=== PATIENT | female | born 1980 | race Caucasian/White ===

== ENCOUNTER → 2016-09-07 11:38 | Emergency (ER) | payer OTHER ==
[~2016-09-07 11:38] MED LIST: Azithromycin TAB* 250 MG PO ONE; cefTRIAXone VIAL(*) 250 MG VIAL IM ONE
[2016-09-07 11:46] VITALS: BP 155/88
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
[2016-09-07 16:17] LABS: Hematocrit 42 % (35-47); Hemoglobin 14.5 g/dl (12.0-16.0); Mean Corpuscular HGB Conc 35 g/dl (31-36); Mean Corpuscular Hemoglobin 36 pg (27-31); Mean Corpuscular Volume 102 fL (80-97); Mean Platelet Volume 9 um3 (7.4-10.4); Red Blood Count 4.08 10^6/ul (4.0-5.4); Red Cell Distribution Width 14 % (10.5-15); White Blood Count 10.8 10^3/ul (3.5-10.8)
[2016-09-07 16:33] LABS: ALT 91 U/L (7-52); AST 67 U/L (13-39); Albumin 4.6 g/dL (3.2-5.2); Alkaline Phosphatase 80 U/L (34-104); Anion Gap 13 mmol/L (2-11); BUN/Creatinine Ratio 17.1 (8-20); Blood Urea Nitrogen 13 mg/dL (6-24); CO2 Carbon Dioxide 21 mmol/L (22-32); Calcium 9.7 mg/dL (8.6-10.3); Chloride 99 mmol/L (101-111); EGFR Non-African American 87.1 (>60); Glucose 71 mg/dL (70-100); Sodium 133 mmol/L (133-145); Total Protein 7.6 g/dL (6.4-8.9)
[2016-09-07 16:58] LABS: Manual Entry Verification MD; Rapid HIV INT CONT QC Line Present; Rapid HIV Kit Lot# F308002
== END | disposition home or self-care (01) ==
LOC: ED 11:38
DX: T74.21XA Adult sexual abuse, confirmed, initial encounter (principal); F17.210 Nicotine dependence, cigarettes, uncomplicated; Y07.59 Other non-family member, perpetrator of maltreatment and neglect
CPT/HCPCS: 36415; 80053; 84702; 85025; 86703; 86803; 87340; 99283; A9270-GY; J0696

== ENCOUNTER 2016-11-12 15:27 | Emergency (ER) | payer OTHER ==
[2016-11-12 19:08] LABS: Anion Gap 8 mmol/L (2-11); BUN/Creatinine Ratio 18.5 (8-20); Blood Urea Nitrogen 12 mg/dL (6-24); CO2 Carbon Dioxide 23 mmol/L (22-32); Chloride 102 mmol/L (101-111); EGFR African American 134.2 (>60); EGFR Non-African American 104.3 (>60); Glucose 86 mg/dL (70-100); Potassium 3.7 mmol/L (3.5-5.0); Sodium 133 mmol/L (133-145)
[2016-11-12 19:09] LABS: ALT 29 U/L (7-52); AST 24 U/L (13-39); Albumin 4.1 g/dL (3.2-5.2); Alkaline Phosphatase 46 U/L (34-104); Calcium 9.5 mg/dL (8.6-10.3); Globulin 2.8 g/dL (2-4); Magnesium 1.7 mg/dL (1.9-2.7); Total Protein 6.9 g/dL (6.4-8.9)
[2016-11-12 19:38] LABS: Hematocrit 42 % (35-47); Hemoglobin 14.1 g/dl (12.0-16.0); Mean Corpuscular HGB Conc 34 g/dl (31-36); Mean Corpuscular Hemoglobin 35 pg (27-31); Mean Corpuscular Volume 104 fL (80-97); Mean Platelet Volume 9 um3 (7.4-10.4); Red Blood Count 4.01 10^6/ul (4.0-5.4); Red Cell Distribution Width 13 % (10.5-15)
[2016-11-12 19:44] LABS: TSH (Thyroid Stimulating Horm) 0.75 mcIU/mL (0.34-5.60)
[2016-11-12 20:12] VITALS: BP 127/68
--- NOTE | 2016-11-12 22:18 | ED ---
Marisa Cox Alfonso, scribed for Devendra Pham MD on 11/12/16 at 1919 . Palpitations / Dysrhythmia - HPI Summary HPI Summary: This patient is a 36 year old female [facility] c/o palpitations at 1450 today. The palpitations lasted approximately one minute. She reports her heart coming out of my chest and shakes through my whole body. Symptoms aggravated by anxiety and alleviated by spontaneous resolution. The patient had SOB and chest heaviness during the episode. She is dizzy and near syncope. The patient reports similar episodes over the last 3 years with the last episode being 4 months ago. She smokes 1 ppd. - History of Current Complaint Chief Complaint: EDDysrhythmPalp Time Seen by Provider: 11/12/16 18:02 Hx Obtained From: Patient Onset/Duration: Sudden Onset, Lasting Minutes - 1 minute, Resolved Severity Initially: Moderate Severity Currently: None Character: Pounding Associated Signs & Symptoms: Dizzy, Syncope - Near, Chest Pain - heaviness, Shortness of Breath - Allergy/Home Medications Allergies/Adverse Reactions: Allergies Allergy/AdvReac Type Severity Reaction Status Date / Time Bacitracin [From Neosporin] Allergy Mild Blisters Verified 02/08/16 10:11 Neomycin [From Neosporin] Allergy Mild Blisters Verified 02/08/16 10:11 Polymyxin B [From Neosporin] Allergy Mild Blisters Verified 02/08/16 10:11 PMH/Surg Hx/FS Hx/Imm Hx Endocrine/Hematology History: Denies: Hx Anticoagulant Therapy, Hx Diabetes, Hx Thyroid Disease Cardiovascular History: Denies: Hx Hypertension, Hx Pacemaker/ICD Respiratory History: Denies: Hx Asthma, Hx Chronic Obstructive Pulmonary Disease (COPD) History: Denies: Hx Renal Disease Neurological History: Denies: Hx Dementia, Hx Seizures Psychiatric History: Denies: Hx Substance Abuse - Surgical History Surgery Procedure, Year, and Place: c section, surgical 2016 Infectious Disease History: No Infectious Disease History: Denies: Hx Hepatitis, Hx Human Immunodeficiency Virus (HIV), History Other Infectious Disease, Traveled Outside the [place] in Last 30 Days - Family History Known Family History: Positive: Diabetes - Social History Alcohol Use: Daily Alcohol Amount: 3-4 beers a day Substance Use Type: Reports: None Smoking Status (MU): Heavy Every Day Tobacco Smoker Amount Used/How Often: 8 cig. day Review of Systems Positive: Palpitations, Chest Pain - heaviness Positive: Shortness Of Breath Neurological: Other - Positive dizziness Positive: Syncope - Near All Other Systems Reviewed And Are Negative: Yes Physical Exam Triage Information Reviewed: Yes Vital Signs On Initial Exam: Initial Vitals Temp Pulse Resp BP Pulse Ox 97.7 F 123 16 150/104 100 11/12/16 15:30 11/12/16 15:30 11/12/16 15:30 11/12/16 15:30 11/12/16 15:30 Vital Signs Reviewed: Yes Appearance: Positive: Well-Appearing, No Pain Distress Skin: Positive: Warm, Skin Color Reflects Adequate Perfusion, Dry Head/Face: Positive: Normal Head/Face Inspection Eyes: Positive: Normal ENT: Positive: Normal ENT inspection Neck: Positive: Supple, Nontender Respiratory/Lung Sounds: Positive: Clear to Auscultation, Breath Sounds Present Cardiovascular: Positive: RRR Abdomen Description: Positive: Nontender, Soft Bowel Sounds: Positive: Present Musculoskeletal: Positive: Normal Neurological: Positive: Normal, Sensory/Motor Intact, Alert, Oriented to Person Place, Time, CN Intact II-III Psychiatric: Positive: Affect/Mood Appropriate - Kathy Coma Scale Coma Scale Total: 15 Diagnostics - Vital Signs Vital Signs Temp Pulse Resp BP Pulse Ox 11/12/16 17:46 99.4 F 67 16 128/86 100 11/12/16 15:30 97.7 F 123 16 150/104 100 - Laboratory Lab Results: Lab Results 11/12/16 11/12/16 Range/Units 18:31 18:31 Sodium 133 (133-145) mmol/L Potassium 3.7 (3.5-5.0) mmol/L Chloride 102 (101-111) mmol/L Carbon Dioxide 23 (22-32) mmol/L Anion Gap 8 (2-11) mmol/L BUN 12 (6-24) mg/dL Creatinine 0.65 (0.51-0.95) mg/dL Est GFR ( Amer) 134.2 (>60) Est GFR (Non-Af Amer) 104.3 (>60) BUN/Creatinine Ratio 18.5 (8-20) Glucose 86 (70-100) mg/dL Lactic Acid 0.7 (0.5-2.0) mmol/L Calcium 9.5 (8.6-10.3) mg/dL Magnesium 1.7 L (1.9-2.7) mg/dL Total Bilirubin 0.50 (0.2-1.0) mg/dL AST 24 (13-39) U/L ALT 29 (7-52) U/L Alkaline Phosphatase 46 (34-104) U/L Troponin I Pending Total Protein 6.9 (6.4-8.9) g/dL Albumin 4.1 (3.2-5.2) g/dL Globulin 2.8 (2-4) g/dL Albumin/Globulin Ratio 1.5 (1-3) TSH Pending Beta HCG, Quant Pending Result Diagrams: 11/12/16 18:31 11/12/16 18:31 Lab Statement: Any lab studies that have been ordered have been reviewed, and results considered in the medical decision making process. - EKG 1533 Cardiac Rate: NL - BPM 74 EKG Rhythm: Sinus Rhythm Course/Dx - Course Course Of Treatment: Ms. Sanderson has had tachycardic palpitations a few times over the last months to years. She had an episode today that was transient and unaccompanied by associated symptoms. She was monitored here with no ectopy and her W/U was negative and I recommended F/U. - Diagnoses Provider Diagnoses: Palpitations Discharge - Discharge Plan Condition: Stable Disposition: HOME Patient Education Materials: Palpitations (ED) Referrals: [facility]YSICIAN REFERRAL [Outside] - 3 Days The documentation as recorded by the Marisa alexis Alfonso accurately reflects the service I personally performed and the decisions made by me, Devendra Pham MD.
== END 2016-11-12 20:13 | disposition home or self-care (01) ==
LOC: ED 15:27
DX: R00.2 Palpitations (principal); R42 Dizziness and giddiness; R55 Syncope and collapse; R07.9 Chest pain, unspecified; R06.02 Shortness of breath; F17.210 Nicotine dependence, cigarettes, uncomplicated
CPT/HCPCS: 36415; 80053; 83605; 83735; 84443; 84484; 84702; 85025; 93005; 99282

== ENCOUNTER 2016-12-10 02:21 | Emergency (ER) | payer OTHER ==
[2016-12-10 02:35] VITALS: BP 138/104
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
--- NOTE | 2016-12-10 07:58 | RAD ---
Indication: Neck injury. CT of the cervical spine was obtained in the axial plane. Sagittal and coronal reconstructed images were obtained. The skull base demonstrates no fracture. Mastoid air cells are well aerated. The C1 ring is intact. The remainder of the vertebral bodies appear normal in height. Straightening of the normal lordosis is noted. At C2-C3 and C3-C4 there is no disc protrusion. No central foraminal stenosis is noted. At C4-C5 no disc protrusion is noted. No central foraminal stenosis is noted. At C5-C6 and C6-C7 there is no disc protrusion noted. IMPRESSION: No fracture of the cervical spine is noted. Degenerative disc disease at C5-C6 is noted.
== END 2016-12-10 03:28 | disposition left against medical advice (07) ==
LOC: ED 02:21
DX: M54.2 Cervicalgia (principal); Z53.21 Procedure and treatment not carried out due to patient leaving prior to being seen by health care provider
CPT/HCPCS: 70450; 72125; 99282

== ENCOUNTER 2017-06-08 12:07 | Emergency (ER) | payer MEDICAID, OTHER ==
[2017-06-08 12:36] VITALS: BP 117/70
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
== END 2017-06-08 14:03 | disposition home or self-care (01) ==
LOC: UCEAST 12:07
DX: S00.83XA Contusion of other part of head, initial encounter (principal); W50.0XXA Accidental hit or strike by another person, initial encounter; Y93.83 Activity, rough housing and horseplay; Y92.9 Unspecified place or not applicable; Z88.3 Allergy status to other anti-infective agents; F17.210 Nicotine dependence, cigarettes, uncomplicated
CPT/HCPCS: 70110; 99211; G0463

== ENCOUNTER 2017-08-17 21:19 | Emergency (ER) | payer MEDICAID ==
[2017-08-17 22:31] LABS: ABS Basophils 0 10^3/ul (0-0.2); ABS Eosinophils 0.1 10^3/ul (0-0.6); ABS Lymphocytes 2.4 10^3/ul (1.0-4.8); ABS Monocytes 0.7 10^3/ul (0-0.8); ABS Nucleated RBC 0 10^3/ul; Eosinophil % 1.5 % (0-6); Hematocrit 41 % (35-47); Hemoglobin 14.3 g/dl (12.0-16.0); Mean Corpuscular HGB Conc 35 g/dl (31-36); Mean Corpuscular Hemoglobin 36 pg (27-31); Mean Corpuscular Volume 103 fL (80-97); Mean Platelet Volume 9.1 um3 (7.4-10.4); Nucleated Red Blood Cells % 0.1; Platelet Count 190 10^3/ul (150-450); Red Blood Count 3.98 10^6/ul (4.0-5.4); Red Cell Distribution Width 13 % (10.5-15); White Blood Count 8.2 10^3/ul (3.5-10.8)
[2017-08-17 22:38] LABS: Urine Appearance Clear; Urine Blood Negative (Negative); Urine Color Colorless; Urine Ketones Negative (Negative); Urine Protein Negative (Negative); Urine Specific Gravity 1.002 (1.010-1.030); Urine Urobilinogen Negative (Negative)
[2017-08-17 22:47] LABS: EGFR Non-African American 75.1 (>60)
--- NOTE | 2017-08-17 23:35 | ED ---
Abdominal Pain/Female - HPI Summary HPI Summary: 37 female presents ED with complaints of lower abdominal pain that began this morning and have worsened throughout the day. 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 States she took a test on July 23 and it was positive. Last menstrual period was July 04, 2017. Denies any vaginal bleeding or discharge at this time. States pain is more on the left side/mid suprapubic portion of the abdomen. Has not taken any medication. Denies any abnormal bowel movements. No urinary symptoms. Has been 8 times has 3 live births and 2 abortions and miscarriages. No past medical history. No vomiting but admits to nausea and abdominal bowel movements. No fever or chills. - History of Current Complaint Chief Complaint: EDAbdPain Stated Complaint: ABD PAIN Time Seen by Provider: 08/17/17 23:26 Hx Obtained From: Patient Hx Last Menstrual Period: July 04, 2017 ?: Yes Onset/Duration: Sudden Onset, Lasting Hours, Still Present Timing: Constant Severity Initially: Moderate Severity Currently: Severe Pain Intensity: 9 Pain Scale Used: 0-10 Numeric Location: Discrete At: LLQ, Suprapubic Radiates: Yes Radiates to: Back - Lower Character: Sharp, Cramping - Like menstrual cramping/contractions Aggravating Factor(s): Movement Alleviating Factor(s): Nothing Associated Signs and Symptoms: Positive: Back Pain - Lower, Nausea. Negative: Fever, Constipation, Blood in Stool, Decreased Appetite, Vaginal Bleeding, Vaginal Discharge, Vomiting, Diarrhea Allergies/Adverse Reactions: Allergies Allergy/AdvReac Type Severity Reaction Status Date / Time bacitracin Allergy Blisters Verified 08/17/17 23:29 [From Neosporin ([id number])] neomycin Allergy Blisters Verified 08/17/17 23:29 [From Neosporin ([id number])] polymyxin B Allergy Blisters Verified 08/17/17 23:29 [From Neosporin ([id number])] PMH/Surg Hx/FS Hx/Imm Hx Endocrine/Hematology History: Denies: Hx Anticoagulant Therapy, Hx Diabetes, Hx Thyroid Disease Cardiovascular History: Denies: Hx Hypertension, Hx Pacemaker/ICD Respiratory History: Denies: Hx Asthma, Hx Chronic Obstructive Pulmonary Disease (COPD) History: Denies: Hx Renal Disease Musculoskeletal History: Reports: Other Musculoskeletal History - No Hx neck problems Neurological History: Denies: Hx Dementia, Hx Seizures Psychiatric History: Denies: Hx Substance Abuse - Surgical History Surgery Procedure, Year, and Place: c section, surgical 2016 - Immunization History Immunizations Up to Date: Yes Infectious Disease History: No Infectious Disease History: Denies: Hx Hepatitis, Hx Human Immunodeficiency Virus (HIV), History Other Infectious Disease, Traveled Outside the [place] in Last 30 Days - Family History Known Family History: Positive: Unknown, Diabetes Family History: NON CONTRIBUTORY - Social History Alcohol Use: Daily Alcohol Amount: 4 beers a day Substance Use Type: Reports: None Smoking Status (MU): Light Every Day Tobacco Smoker Amount Used/How Often: 10 cig. day Review of Systems Constitutional: Negative Cardiovascular: Negative Respiratory: Negative Positive: Abdominal Pain, Nausea Positive: see HPI Skin: Negative Neurological: Negative All Other Systems Reviewed And Are Negative: Yes Physical Exam Triage Information Reviewed: Yes Vital Signs On Initial Exam: Initial Vitals Temp Pulse Resp BP Pulse Ox 99.1 F 92 22 150/99 99 08/17/17 21:26 08/17/17 21:26 08/17/17 21:26 08/17/17 21:26 08/17/17 21:26 Repeat vitals, blood pressure improved once pain improved Vital Signs Reviewed: Yes Appearance: Positive: Well-Appearing, Well-Nourished, Pain Distress - Moderate to severe and able to sit on the stretcher Skin: Positive: Warm, Skin Color Reflects Adequate Perfusion, Dry. Negative: Cold, Numb, Cyanosis @, Pale, Erythema @ Head/Face: Positive: Normal Head/Face Inspection Eyes: Positive: Conjunctiva Clear ENT: Positive: Pharynx normal Neck: Positive: Supple, Nontender Respiratory/Lung Sounds: Positive: Clear to Auscultation, Breath Sounds Present. Negative: Rales, Rhonchi, Wheezes Cardiovascular: Positive: Normal, RRR, Pulses are Symmetrical in both Upper and Lower Extremities. Negative: Murmur, Rub Abdomen Description: Positive: No Organomegaly, Soft, Other: - Suprapubic tenderness to palpation greater on the left side. Negative: Bruit, CVA Tenderness (R), CVA Tenderness (L), Distended, Guarding Bowel Sounds: Positive: Present Musculoskeletal: Positive: Normal, Strength/ROM Intact Neurological: Positive: Normal, Sensory/Motor Intact, Alert, Oriented to Person Place, Time Diagnostics - Vital Signs Vital Signs Temp Pulse Resp BP Pulse Ox 08/17/17 21:26 99.1 F 92 22 150/99 99 - Laboratory Lab Results: Lab Results 08/17/17 08/17/17 08/17/17 Range/Units 22:10 22:10 22:10 WBC 8.2 (3.5-10.8) 10^3/ul RBC 3.98 L (4.0-5.4) 10^6/ul Hgb 14.3 (12.0-16.0) g/dl Hct 41 (35-47) % MCV 103 H (80-97) fL MCH 36 H (27-31) pg MCHC 35 (31-36) g/dl RDW 13 (10.5-15) % Plt Count 190 (150-450) 10^3/ul MPV 9.1 (7.4-10.4) um3 Neut % (Auto) 60.7 (38-83) % Lymph % (Auto) 29.0 (25-47) % [place] % (Auto) 8.2 H (0-7) % Eos % (Auto) 1.5 (0-6) % Baso % (Auto) 0.6 (0-2) % Absolute Neuts (auto) 5.0 (1.5-7.7) 10^3/ul Absolute Lymphs (auto) 2.4 (1.0-4.8) 10^3/ul Absolute Monos (auto) 0.7 (0-0.8) 10^3/ul Absolute Eos (auto) 0.1 (0-0.6) 10^3/ul Absolute Basos (auto) 0 (0-0.2) 10^3/ul Absolute Nucleated RBC 0 10^3/ul Nucleated RBC % 0.1 Sodium 137 (133-145) mmol/L Potassium 3.4 L (3.5-5.0) mmol/L Chloride 102 (101-111) mmol/L Carbon Dioxide 27 (22-32) mmol/L Anion Gap 8 (2-11) mmol/L BUN 9 (6-24) mg/dL Creatinine 0.86 (0.51-0.95) mg/dL Est GFR ( Amer) 96.6 (>60) Est GFR (Non-Af Amer) 75.1 (>60) BUN/Creatinine Ratio 10.5 (8-20) Glucose 92 (70-100) mg/dL Lactic Acid 1.2 (0.5-2.0) mmol/L Calcium 10.2 (8.6-10.3) mg/dL Total Bilirubin 0.50 (0.2-1.0) mg/dL AST 25 (13-39) U/L ALT 34 (7-52) U/L Alkaline Phosphatase Pending C-Reactive Protein < 1.00 (< 5.00) mg/L Total Protein 7.4 (6.4-8.9) g/dL Albumin 4.6 (3.2-5.2) g/dL Globulin 2.8 (2-4) g/dL Albumin/Globulin Ratio 1.6 (1-3) Lipase 27 (11.0-82.0) U/L Beta HCG, Quant 655.31 mIU/mL Urine Color Urine Appearance Urine pH (5-9) Ur Specific [place] (1.010-1.030) Urine Protein (Negative) Urine Ketones (Negative) Urine Blood (Negative) Urine Nitrate (Negative) Urine Bilirubin (Negative) Urine Urobilinogen (Negative) Ur Leukocyte Esterase (Negative) Urine Glucose (Negative) 08/17/ Range/Units 22:10 WBC (3.5-10.8) 10^3/ul RBC (4.0-5.4) 10^6/ul Hgb (12.0-16.0) g/dl Hct (35-47) % MCV (80-97) fL MCH (27-31) pg MCHC (31-36) g/dl RDW (10.5-15) % Plt Count (150-450) 10^3/ul MPV (7.4-10.4) um3 Neut % (Auto) (38-83) % Lymph % (Auto) (25-47) % [place] % (Auto) (0-7) % Eos % (Auto) (0-6) % Baso % (Auto) (0-2) % Absolute Neuts (auto) (1.5-7.7) 10^3/ul Absolute Lymphs (auto) (1.0-4.8) 10^3/ul Absolute Monos (auto) (0-0.8) 10^3/ul Absolute Eos (auto) (0-0.6) 10^3/ul Absolute Basos (auto) (0-0.2) 10^3/ul Absolute Nucleated RBC 10^3/ul Nucleated RBC % Sodium (133-145) mmol/L Potassium (3.5-5.0) mmol/L Chloride (101-111) mmol/L Carbon Dioxide (22-32) mmol/L Anion Gap (2-11) mmol/L BUN (6-24) mg/dL Creatinine (0.51-0.95) mg/dL Est GFR ( Amer) (>60) Est GFR (Non-Af Amer) (>60) BUN/Creatinine Ratio (8-20) Glucose (70-100) mg/dL Lactic Acid (0.5-2.0) mmol/L Calcium (8.6-10.3) mg/dL Total Bilirubin (0.2-1.0) mg/dL AST (13-39) U/L ALT (7-52) U/L Alkaline Phosphatase C-Reactive Protein (< 5.00) mg/L Total Protein (6.4-8.9) g/dL Albumin (3.2-5.2) g/dL Globulin (2-4) g/dL Albumin/Globulin Ratio (1-3) Lipase (11.0-82.0) U/L Beta HCG, Quant mIU/mL Urine Color Colorless Urine Appearance Clear Urine pH 7.0 (5-9) Ur Specific [place] 1.002 L (1.010-1.030) Urine Protein Negative (Negative) Urine Ketones Negative (Negative) Urine Blood Negative (Negative) Urine Nitrate Negative (Negative) Urine Bilirubin Negative (Negative) Urine Urobilinogen Negative (Negative) Ur Leukocyte Esterase Negative (Negative) Urine Glucose Negative (Negative) Result Diagrams: 08/17/17 22:10 08/17/17 22:10 Lab Statement: Any lab studies that have been ordered have been reviewed, and results considered in the medical decision making process. - Ultrasound No standard instances Ultrasound Interpretation: Positive (See Comments) - no visible intrauterine gestational sac, possibly due to early gestation or spontaneous . endometrial stripe thickness 5 mm. no adnexal masses appreciated. advise correlation with quantitative serial beta hcg and follow up ultrasound as clincally indiated to exclude possibility of nonvisualized ectopic . No ovarian torsion. Color flow with appropriate arterial and venous waveforms and 1.4 cm corpus luteum or dominant follicle left ovary Ultrasound Interpretation Completed By: Radiologist Re-Evaluation - Re-Evaluation First Eval Re-Evaluation Time: 00:40 Change: Improved - Had relief from medication Second Eval Re-Evaluation Time: 01:25 Change: Improved - still feeling better, mild to moderate cramping with headache , will give toradol, updated on results, ready to be d/c Abdominal Pain Fem Course/Dx - Course Course Of Treatment: Labs obtained in unremarkable other than hCG being only 655 with last menstrual period being July 04, 2017 would expect this to be much higher. Normal urinalysis. Given Zofran for nausea and morphine for pain , had relief. given toradol after results of US and labs. patient deferred pelvic exam as asymptomatic and in pain. Obtained ultrasound showing no IUP due to possible early gestation versus spontaneous . Continue ibuprofen/ Tylenol as needed for pain also recommended heating pad. Aware worsening signs and symptoms to watch out for and return the ED promptly if occur. Follow-up with [facility] called Manuel appointment tomorrow for follow-up hCG and ultrasound imaging. No other concerns at this time - Diagnoses Differential Diagnosis: Positive: Ectopic , Other - , spontaneous , abdominal cramping Provider Diagnoses: Spontaneous , Abdominal cramping Discharge - Sign-Out/Discharge Documenting (check all that apply): Discharge - Discharge Plan Condition: Improved Disposition: HOME Patient Education Materials: Miscarriage (ED) Referrals: Paulo Andersen MD [Primary Care Provider] - Abhay Bernardo MD [Medical Doctor] - Additional Instructions: Please call to make an appointment with [facility] tomorrow for repeat ultrasound and hCG's. Any new or worsening symptoms please return to ED as we discussed. Continue ibuprofen/Tylenol for pain and inflammation. Also recommend use of heating pad. - Billing Disposition and Condition Condition: IMPROVED Disposition: HOME
[2017-08-17] MEDS ORDERED: Ondansetron INJ* 2 MG/ML VIAL IV ONE (23:36)
[2017-08-18] MEDS ORDERED: Morphine INJ* 2 MG/ML 1 ML CARPUJECT IV ONE (00:04)
[2017-08-18] MEDS ORDERED: Ketorolac INJ* 30 MG/ML 1 ML VIAL IV PUSH ONE (01:29)
[2017-08-18] MEDS ORDERED: Ketorolac INJ* 30 MG/ML 1 ML VIAL ONE ×2 (01:30)
[2017-08-18 01:43] VITALS: BP 116/69
--- NOTE | 2017-08-18 08:00 | RAD ---
INDICATION: Early with abdominal pain COMPARISON: None TECHNIQUE: Transvaginal scans of the pelvis were performed for evaluation. FINDINGS: There is no evidence of an intrauterine gestation and therefore the setting of a positive test ectopic is not excluded. There is no adnexal mass or free fluid. There is no evidence of ovarian torsion. The right ovary measures 3.0 x 1.6 x 1.6 cm and the left 3.8 x 2.4 x 2.5 cm. IMPRESSION: NO EVIDENCE OF AN INTRAUTERINE GESTATION AND THEREFORE ECTOPIC CANNOT BE EXCLUDED. NO ADNEXAL MASS OR FREE FLUID. SUGGEST FURTHER CLINICAL AND SONOGRAPHIC FOLLOW-UP AND CORRELATION WITH SERIAL BETA-HCGS.
== END 2017-08-18 01:43 | disposition home or self-care (01) ==
LOC: ED 21:19
DX: O03.9 Complete or unspecified spontaneous abortion without complication (principal); R10.32 Left lower quadrant pain; R11.0 Nausea; M54.5 Low back pain; F17.210 Nicotine dependence, cigarettes, uncomplicated
CPT/HCPCS: 36415; 76817; 80053; 81003; 83605; 83690; 84702; 85025; 86140; 96374; 96375; 99283; J1885; J2270; J2405

== ENCOUNTER 2017-12-20 23:31 | Emergency (ER) | payer OTHER ==
[2017-12-20 23:36] VITALS: BP 118/81
--- NOTE | 2017-12-21 02:27 | ED ---
Lower Extremity - History of Current Complaint Chief Complaint: EDExtremityLower Stated Complaint: LT ANKLE INJURY Time Seen by Provider: 12/21/17 00:42 Hx Last Menstrual Period: July 04, 2017 Pain Intensity: 8 - Allergies/Home Medications Allergies/Adverse Reactions: Allergies Allergy/AdvReac Type Severity Reaction Status Date / Time bacitracin Allergy Blisters Verified 08/17/17 23:29 [From Neosporin ([id number])] neomycin Allergy Blisters Verified 08/17/17 23:29 [From Neosporin ([id number])] polymyxin B Allergy Blisters Verified 08/17/17 23:29 [From Neosporin ([id number])] PMH/Surg Hx/FS Hx/Imm Hx Endocrine/Hematology History: Denies: Hx Anticoagulant Therapy, Hx Diabetes, Hx Thyroid Disease Cardiovascular History: Denies: Hx Hypertension, Hx Pacemaker/ICD Respiratory History: Denies: Hx Asthma, Hx Chronic Obstructive Pulmonary Disease (COPD) History: Denies: Hx Renal Disease Musculoskeletal History: Reports: Other Musculoskeletal History - No Hx neck problems Neurological History: Denies: Hx Dementia, Hx Seizures Psychiatric History: Denies: Hx Substance Abuse - Surgical History Surgery Procedure, Year, and Place: c section, surgical 2016 Infectious Disease History: No Infectious Disease History: Denies: Hx Hepatitis, Hx Human Immunodeficiency Virus (HIV), History Other Infectious Disease, Traveled Outside the [place] in Last 30 Days - Family History Known Family History: Positive: Unknown, Diabetes Family History: NON CONTRIBUTORY - Social History Alcohol Use: Daily Alcohol Amount: 4 beers a day Substance Use Type: Reports: None Smoking Status (MU): Light Every Day Tobacco Smoker Amount Used/How Often: 10 cig. day Physical Exam Vital Signs On Initial Exam: Initial Vitals Temp Pulse Resp BP Pulse Ox 98.2 F 109 18 118/81 99 12/20/17 23:34 12/20/17 23:34 12/20/17 23:34 12/20/17 23:34 12/20/17 23:34 Diagnostics - Vital Signs Vital Signs Temp Pulse Resp BP Pulse Ox 12/20/17 23:34 98.2 F 109 18 118/81 99 - Laboratory Lab Statement: Any lab studies that have been ordered have been reviewed, and results considered in the medical decision making process. Lower Extremity Course/Dx - Course Course Of Treatment: Intermediate cuboid fx Lt foot - Diagnoses Provider Diagnoses: Left cuboid fracture Discharge - Sign-Out/Discharge Documenting (check all that apply): Patient Departure - Discharge Plan Condition: Stable Disposition: HOME Patient Education Materials: Foot Fracture in Adults (ED), Crutch Instructions (ED) Referrals: Riki Lyons MD [Medical Doctor] - - Billing Disposition and Condition Condition: STABLE Disposition: Home
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
== END 2017-12-21 02:46 | disposition home or self-care (01) ==
LOC: ED 23:31
DX: S92.212A Displaced fracture of cuboid bone of left foot, initial encounter for closed fracture (principal); X58.XXXA Exposure to other specified factors, initial encounter; Y92.9 Unspecified place or not applicable; F17.210 Nicotine dependence, cigarettes, uncomplicated
CPT/HCPCS: 99282

== ENCOUNTER 2018-03-21 14:57 | Emergency (ER) | payer OTHER ==
[2018-03-21 15:14] VITALS: BP 131/82
--- NOTE | 2018-03-21 15:22 | UC ---
Skin Complaint HPI - HPI Summary HPI Summary: sore warm tender swollen skin on her chin--"i think it is a spider bit" no known injury - History of Current Complaint Chief Complaint: UCSkin Time Seen by Provider: 03/21/18 15:02 Stated Complaint: SKIN COMPLAINT Hx Obtained From: Patient Hx Last Menstrual Period: 1 week ago ?: No Onset/Duration: Sudden Onset, Lasting Days - 1, Still Present Timing: Constant Pain Intensity: 6 Pain Scale Used: 0-10 Numeric Location: Discrete Character: Swelling, Pain, Redness, Raised Aggravating Factor(s): Touch Alleviating Factor(s): Nothing Associated Signs & Symptoms: Positive: Joint Swelling - Allergy/Home Medications Allergies/Adverse Reactions: Allergies Allergy/AdvReac Type Severity Reaction Status Date / Time bacitracin Allergy Blisters Verified 03/21/18 15:14 [From Neosporin ([id number])] neomycin Allergy Blisters Verified 03/21/18 15:14 [From Neosporin ([id number])] polymyxin B Allergy Blisters Verified 03/21/18 15:14 [From Neosporin ([id number])] Review of Systems Constitutional: Negative Skin: Other - red warm swollen tender, chin Eyes: Negative ENT: Negative Respiratory: Negative Cardiovascular: Negative Gastrointestinal: Negative Genitourinary: Negative Motor: Negative Neurovascular: Negative Musculoskeletal: Negative Neurological: Negative Psychological: Negative Is Patient Immunocompromised?: No All Other Systems Reviewed And Are Negative: Yes PMH/Surg Hx/FS Hx/Imm Hx Previously Healthy: Yes Other History Of: Negative For: Anticoagulant Therapy - Surgical History Surgical History: Yes Surgery Procedure, Year, and Place: c section, surgical 2015 - Family History Known Family History: Positive: Unknown, Diabetes Family History: NON CONTRIBUTORY - Social History Occupation: Unemployed Lives: With Family Alcohol Use: Daily Alcohol Amount: 4 beers a day Substance Use Type: None Smoking Status (MU): Light Every Day Tobacco Smoker Amount Used/How Often: 10 cig. day Household Exposure Type: Cigarettes - Immunization History Most Recent Influenza Vaccination: none Physical Exam Triage Information Reviewed: Yes Appearance: Well-Appearing, No Pain Distress, Well-Nourished Vital Signs: Initial Vital Signs Temp 98.3 F 03/21/18 15:10 Pulse 79 03/21/18 15:10 Resp 16 03/21/18 15:10 BP 131/82 10/28/18 15:10 Pulse Ox 100 03/21/18 15:10 Vital Signs Reviewed: Yes Eye Exam: Normal Eyes: Positive: Conjunctiva Clear ENT Exam: Normal ENT: Positive: Normal ENT inspection, Hearing grossly normal. Negative: Trismus , Muffled voice, Hoarse voice Dental Exam: Normal Neck exam: Normal Neck: Positive: Supple, Nontender, No Lymphadenopathy Respiratory Exam: Normal Respiratory: Positive: Chest non-tender, No respiratory distress, No accessory muscle use Cardiovascular Exam: Normal Cardiovascular: Positive: RRR, Pulses Normal, Brisk Capillary Refill Musculoskeletal Exam: Normal Musculoskeletal: Positive: Strength Intact, ROM Intact, No Edema Neurological Exam: Normal Neurological: Positive: Alert, Muscle Tone Normal Psychological Exam: Normal Skin Exam: Other Skin: Positive: Other - no open area or absess, skin is red warm tender Course/Dx - Course Course Of Treatment: warm compress, bactrim re-check prn, diflucan in the event of VCC,cigarette smoking cesassation information - Diagnoses Provider Diagnoses: cellulitis chin, nicotine dependant, binge alcohol use Discharge - Sign-Out/Discharge Documenting (check all that apply): Patient Departure All imaging exams completed and their final reports reviewed: No Studies - Discharge Plan Condition: Stable Disposition: HOME Prescriptions: Fluconazole 150 MG (NF) [Diflucan 150 mg (NF)] 150 mg PO ONCE #2 tab Sulfamethox/Trimethoprim DS* [Bactrim DS 800/160 TAB*] 1 tab PO BID #20 tab Patient Education Materials: Cellulitis (DC), Warm Compress or Soak (ED) Referrals: Paulo Andersen MD [Primary Care Provider] - If Needed - Billing Disposition and Condition Condition: STABLE Disposition: Home
== END 2018-03-21 15:35 | disposition home or self-care (01) ==
LOC: UCEAST 14:57
DX: L03.211 Cellulitis of face (principal); F17.210 Nicotine dependence, cigarettes, uncomplicated; Z88.2 Allergy status to sulfonamides; Z88.1 Allergy status to other antibiotic agents; Z72.89 Other problems related to lifestyle
CPT/HCPCS: 99212; G0463

== ENCOUNTER 2018-04-08 12:31 | Emergency (ER) | payer OTHER ==
[2018-04-08 12:37] VITALS: BP 160/104
--- NOTE | 2018-04-08 14:21 | ED ---
HPI Chest Pain - HPI Summary HPI Summary: A 38 y/o female presents to the ED c/o CP. The patient was observed by us leaving the ED before we could initiate provider contact. Pt is a level 5 caveat due to this circumstance. - History of Current Complaint Chief Complaint: EDChestPainROMI Time Seen by Provider: 04/08/18 13:53 Hx Last Menstrual Period: 1 week ago Pain Intensity: 5 - Allergy/Home Medications Allergies/Adverse Reactions: Allergies Allergy/AdvReac Type Severity Reaction Status Date / Time bacitracin Allergy Blisters Verified 04/08/18 12:38 [From Neosporin ([id number])] neomycin Allergy Blisters Verified 04/08/18 12:38 [From Neosporin ([id number])] polymyxin B Allergy Blisters Verified 04/08/18 12:38 [From Neosporin ([id number])] PMH/Surg Hx/FS Hx/Imm Hx Endocrine/Hematology History: Denies: Hx Anticoagulant Therapy, Hx Diabetes, Hx Thyroid Disease Cardiovascular History: Denies: Hx Hypertension, Hx Pacemaker/ICD Respiratory History: Denies: Hx Asthma, Hx Chronic Obstructive Pulmonary Disease (COPD) History: Denies: Hx Renal Disease Musculoskeletal History: Reports: Other Musculoskeletal History - No Hx neck problems Sensory History: Denies: Hx Hearing Aid Neurological History: Denies: Hx Dementia, Hx Seizures Psychiatric History: Reports: Hx Panic Disorder - ATTACKS Denies: Hx Substance Abuse - Surgical History Surgery Procedure, Year, and Place: c section, surgical 2016 Infectious Disease History: No Infectious Disease History: Denies: Hx Hepatitis, Hx Human Immunodeficiency Virus (HIV), History Other Infectious Disease, Traveled Outside the [place] in Last 30 Days - Family History Known Family History: Positive: Diabetes Family History: NON CONTRIBUTORY - Social History Alcohol Use: Daily Alcohol Amount: 4 beers a day Hx Substance Use: No Substance Use Type: Reports: None Hx Tobacco Use: Yes Smoking Status (MU): Light Every Day Tobacco Smoker Amount Used/How Often: 10 cig. day Review of Systems - ROS Summary Review of Systems Summary: Pt is a level 5 caveat because she was observed leaving before we could initiate provider contact. Negative: Fever All Other Systems Reviewed And Are Negative: No Physical Exam Vital Signs On Initial Exam: Initial Vitals Temp Pulse Resp BP Pulse Ox 98.2 F 107 20 160/104 99 04/08/18 12:32 04/08/18 12:32 04/08/18 12:32 04/08/18 12:32 04/08/18 12:32 Diagnostics - Vital Signs Vital Signs Temp Pulse Resp BP Pulse Ox 04/08/18 12:32 98.2 F 107 20 160/104 99 - Laboratory Lab Statement: Any lab studies that have been ordered have been reviewed, and results considered in the medical decision making process. Chest Pain Course/Dx - Course Course Of Treatment: A 38 y/o female presents to the ED c/o CP. The patient was observed by us leaving the ED before we could initiate provider contact. Pt is a level 5 caveat due to this circumstance. - Diagnoses Provider Diagnoses: Left against medical advice Discharge - Sign-Out/Discharge Documenting (check all that apply): Patient Departure - [place] - Discharge Plan Condition: Fair Disposition: [place] Referrals: Paulo Andersen MD [Primary Care Provider] - - Attestation Statements Document Initiated by Scribe: Yes Documenting Scribe: Hermes Talbert Provider For Whom Scribe is Documenting (Include Credential): Dhaval Garcia MD Scribe Attestation: Hermes Cox, scribed for Dhaval Garcia MD on 04/08/18 at [id number].
== END 2018-04-08 14:17 | disposition home or self-care (01) ==
LOC: ED 12:31
DX: R07.9 Chest pain, unspecified (principal); Z53.21 Procedure and treatment not carried out due to patient leaving prior to being seen by health care provider; F41.0 Panic disorder [episodic paroxysmal anxiety]; F17.210 Nicotine dependence, cigarettes, uncomplicated
CPT/HCPCS: 93005; 99281

== ENCOUNTER 2018-06-23 10:24 | Emergency (ER) | payer OTHER ==
[2018-06-23 11:29] LABS: ABS Basophils 0 10^3/ul (0-0.2); ABS Eosinophils 0.1 10^3/ul (0-0.6); ABS Lymphocytes 1.8 10^3/ul (1.0-4.8); ABS Monocytes 0.9 10^3/ul (0-0.8); ABS Neutrophils 3.4 10^3/ul (1.5-7.7); ABS Nucleated RBC 0 10^3/ul; Eosinophil % 1.8 %; Hematocrit 38 % (35-47); Hemoglobin 13.3 g/dl (12.0-16.0); Mean Corpuscular HGB Conc 35 g/dl (31-36); Mean Corpuscular Hemoglobin 36 pg (27-31); Mean Corpuscular Volume 104 fL (80-97); Mean Platelet Volume 8.5 fL (7.4-10.4); Nucleated Red Blood Cells % 0; Platelet Count 193 10^3/ul (150-450); Red Blood Count 3.68 10^6/ul (4.00-5.40); Red Cell Distribution Width 13 % (10.5-15); White Blood Count 6.2 10^3/ul (3.5-10.8)
--- NOTE | 2018-06-23 11:32 | ED ---
Abdominal Pain/Female - HPI Summary HPI Summary: A 38 y/o female presents to [facility] with a chief complaint of vaginal bleeding. 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 Per triage note the patient reports, "I think I'm having a miscarriage, its' been going on, this past week I 've been bleeding more with clots, my stomach feels like its ripping, bad, and super super super nauseous" Pt states that she didn't take a test and has had a miscarriage before and this feels the same." She also c/o abdominal cramps. She claims that she has used 7 pads within 4 hours. She claims that she has been bleeding clots in sudden bursts of blood. She claims that she has a thyroid problem that causes her to sometimes miss a period. She denies having an ectopic . 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 - History of Current Complaint Chief Complaint: EDVaginalBleeding Stated Complaint: ABD PAIN/POSS Hx Obtained From: Patient Hx Last Menstrual Period: weeks Onset/Duration: Sudden Onset, Lasting Weeks, Still Present Timing: Weeks Severity Initially: Severe Severity Currently: Severe Pain Intensity: 8 Pain Scale Used: 0-10 Numeric Location: Suprapubic Radiates: No Character: Cramping Aggravating Factor(s): Nothing Alleviating Factor(s): Nothing Associated Signs and Symptoms: Positive: Nausea, Other: - positive: abdominal pain. Negative: Fever Allergies/Adverse Reactions: Allergies Allergy/AdvReac Type Severity Reaction Status Date / Time bacitracin Allergy Blisters Verified 06/23/18 10:30 [From Neosporin ([id number])] neomycin Allergy Blisters Verified 06/23/18 10:30 [From Neosporin ([id number])] polymyxin B Allergy Blisters Verified 06/23/18 10:30 [From Neosporin ([id number])] PMH/Surg Hx/FS Hx/Imm Hx Endocrine/Hematology History: Denies: Hx Anticoagulant Therapy, Hx Diabetes, Hx Thyroid Disease Cardiovascular History: Denies: Hx Hypertension, Hx Pacemaker/ICD Respiratory History: Denies: Hx Asthma, Hx Chronic Obstructive Pulmonary Disease (COPD) History: Denies: Hx Renal Disease Musculoskeletal History: Reports: Other Musculoskeletal History - No Hx neck problems Sensory History: Denies: Hx Hearing Aid Neurological History: Denies: Hx Dementia, Hx Seizures Psychiatric History: Reports: Hx Panic Disorder - ATTACKS Denies: Hx Substance Abuse - Surgical History Surgery Procedure, Year, and Place: c section, surgical 2016 Infectious Disease History: No Infectious Disease History: Denies: Hx Hepatitis, Hx Human Immunodeficiency Virus (HIV), History Other Infectious Disease, Traveled Outside the US in Last 30 Days - Family History Known Family History: Positive: Hypertension, Diabetes - Social History Alcohol Use: Daily Alcohol Amount: 4 beers a day Hx Substance Use: No Substance Use Type: Reports: None Hx Tobacco Use: Yes Smoking Status (MU): Light Every Day Tobacco Smoker Amount Used/How Often: 10 cig. day Review of Systems Negative: Fever Positive: Abdominal Pain, Nausea Positive: other - Positive: vaginal bleeding All Other Systems Reviewed And Are Negative: Yes Physical Exam - Summary Physical Exam Summary: GENERAL: Patient is a well-developed and nourished F who is lying comfortable in the stretcher. Patient is not in any acute respiratory distress. HEAD AND FACE: Normocephalic EYES: PERRLA, EOMI x 2. EARS: Hearing grossly intact. MOUTH: Oropharynx within normal limits. NECK: Supple, trachea is midline, no adenopathy, no JVD, no carotid bruit. CHEST: Symmetric, no tenderness at palpation LUNGS: Clear to auscultation bilaterally. No wheezing or crackles. CVS: Regular rate and rhythm, S1 and S2 present, no murmurs or gallops appreciated. ABDOMEN: Soft, Tender in suprapubic region. Bowel sounds are normal. No abdominal abnormal pulsations. EXTREMITIES: Full ROM in all major joints, no edema, no cyanosis or clubbing. NEURO: Alert and oriented x 3. No acute neurological deficits. Speech is normal and follows commands. SKIN: Dry and warm : Refused Triage Information Reviewed: Yes Vital Signs On Initial Exam: Initial Vitals Temp Pulse Resp BP Pulse Ox 97.6 F 86 17 147/91 98 06/23/18 10:27 06/23/18 10:27 06/23/18 10:27 06/23/18 10:27 06/23/18 10:27 Vital Signs Reviewed: Yes Diagnostics - Vital Signs Vital Signs Temp Pulse Resp BP Pulse Ox 06/23/18 11:03 75 99 06/23/18 11:01 72 122/75 99 06/23/18 10:27 97.6 F 86 17 147/91 98 - Laboratory Result Diagrams: 06/23/18 11:21 06/23/18 11:21 Lab Statement: Any lab studies that have been ordered have been reviewed, and results considered in the medical decision making process. - Ultrasound No standard instances Ultrasound Interpretation Completed By: Radiologist Summary of Ultrasound Findings: Transvaginal Ultrasound Impression: SINGLE LIVE INTRAUTERINE GESTATION AT 6 WEEKS, 6 DAYS BY CROWN-RUMP LENGTH. ED physician has reviewed this imaging report. Re-Evaluation - Re-Evaluation First Eval Re-Evaluation Time: 13:35 Change: Unchanged Comment: Reports that she is still bleeding a lot. Second Eval Re-Evaluation Time: 13:49 Change: Improved Comment: Pt is ready for discharge. Abdominal Pain Fem Course/Dx - Course Course Of Treatment: A 38 y/o female presents to [facility] with a chief complaint of vaginal bleeding. 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 The patient thinks she is having a miscarriage because she has had similar symptoms before when she had a miscarriage, but she is unsure if she is . Workup is remarkable. The physical exam revealed that the patient was tender in the suprapubic region. Lab results obtained. [place] [address]. Urine ketones 1+, urine blood 2+, Urine Urobilinogen present, Urine RBC 1+, Ur Squamous epith cells present. In the ED course she was given Zofran PO. Transvaginal Ultrasound Impression: SINGLE LIVE INTRAUTERINE GESTATION AT 6 WEEKS, 6 DAYS BY CROWN-RUMP LENGTH. The patient refused a pelvic exam. The patient will be discharged. I discussed results with patient and she reports feeling better. She is hemodynamically stable and safe for discharge. Strict return precautions given and she will otherwise follow up with her PCP. The patient is agreeable with this plan. - Diagnoses Provider Diagnoses: Vaginal bleeding, Discharge - Sign-Out/Discharge Documenting (check all that apply): Patient Departure - DC Patient Received Moderate/Deep Sedation with Procedure: No - Discharge Plan Condition: Stable Disposition: HOME Referrals: Abhay Bernardo MD [Medical Doctor] - Paulo Andersen MD [Primary Care Provider] - (1-3 days) Additional Instructions: Follow up with OB. RETURN TO THE EMERGENCY DEPARTMENT FOR CHANGING OR WORSENING SYMPTOMS. - Billing Disposition and Condition Condition: STABLE Disposition: Home - Attestation Statements Document Initiated by Emi: Yes Documenting Scribe: Hermes Talbert Provider For Whom Emi is Documenting (Include Credential): Kendall Joshi MD Scribe Attestation: IHermes, scribed for Kendall Joshi MD on 06/23/18 at 1755. Scribe Documentation Reviewed: Yes Provider Attestation: The documentation as recorded by the Hermes alexis accurately reflects the service I personally performed and the decisions made by me, Jian Joshi MD Status of Scribe Document: Viewed
[2018-06-23 11:35] LABS: INR 0.94 (0.77-1.02)
[2018-06-23 11:52] LABS: Albumin 4.4 g/dL (3.2-5.2); Albumin/Globulin Ratio 1.6 (1-3); Calcium 9.9 mg/dL (8.6-10.3); EGFR African American 142.3 (>60); EGFR Non-African American 117.6 (>60); Globulin 2.8 g/dL (2-4); Total Bilirubin 0.7 mg/dL (0.2-1.0); Total Protein 7.2 g/dL (6.4-8.9)
[2018-06-23] MEDS ORDERED: Ondansetron ODT TAB* 4 MG PO ONE (12:10)
[2018-06-23 13:01] LABS: Urine Appearance Cloudy; Urine Bacteria Absent (Absent); Urine Bilirubin Negative (Negative); Urine Blood 2+ (Negative); Urine Color Yellow; Urine Glucose Negative (Negative); Urine Ketones 1+ (Negative); Urine Nitrite Negative (Negative); Urine Protein Negative (Negative); Urine Red Blood Cell 1+(3-5/hpf) (Absent); Urine Specific Gravity 1.025 (1.010-1.030); Urine Squamous Epithelial Cell Present (Absent); Urine Urobilinogen Positive (Negative); Urine White Blood Cell Trace(0-5/hpf) (Absent)
[2018-06-23 13:58] VITALS: BP 147/85
== END 2018-06-23 13:58 | disposition home or self-care (01) ==
LOC: ED 10:24
DX: O46.90 Antepartum hemorrhage, unspecified, unspecified trimester (principal); R10.9 Unspecified abdominal pain; R11.0 Nausea; F17.210 Nicotine dependence, cigarettes, uncomplicated
CPT/HCPCS: 36415; 76817; 80053; 81003; 81015; 83690; 84702; 85025; 85610; 86850; 86900; 86901; 87086; 99283; A9270-GY

== ENCOUNTER 2018-06-26 15:49 | Day surgery (SDC) | payer OTHER ==
[2018-06-26] MEDS ORDERED: Methylergonovine INJ* 0.2 MG/ML 1ML AMP IM ONE (16:27)
[2018-06-26 16:28] LABS: ABS Basophils 0.1 10^3/ul (0-0.2); ABS Eosinophils 0.2 10^3/ul (0-0.6); ABS Lymphocytes 3.4 10^3/ul (1.0-4.8); ABS Monocytes 1.2 10^3/ul (0-0.8); ABS Neutrophils 5.8 10^3/ul (1.5-7.7); ABS Nucleated RBC 0 10^3/ul; Eosinophil % 1.4 %; Hematocrit 31 % (35-47); Hemoglobin 10.7 g/dl (12.0-16.0); Lymphocyte % 31.8 %; Mean Corpuscular HGB Conc 35 g/dl (31-36); Mean Corpuscular Hemoglobin 36 pg (27-31); Mean Corpuscular Volume 104 fL (80-97); Nucleated Red Blood Cells % 0; Platelet Count 224 10^3/ul (150-450); Red Blood Count 2.98 10^6/ul (4.00-5.40); Red Cell Distribution Width 13 % (10.5-15); White Blood Count 10.6 10^3/ul (3.5-10.8)
[2018-06-26] MEDS ORDERED: NS 0.9% 1000 ML** 1,000 ML IV ONE (16:29)
--- NOTE | 2018-06-26 16:29 | ED ---
- HPI Summary HPI Summary: A 38 y/o female accompanied by her daughter and ex- presents to the ED c/ o heavy vaginal bleeding reaching 7/10 in severity for the past hour. In the ED room, the patient has a pulse of 115/80. As per triage, "confirmed 3 days ago, was having mild vaginal bleeding. today, heavy vaginal bleeding, dizziness, pt stating "i just dont feel right", lower abdominal pains". According to the patient, she was here 3 days ago. She had a ultrasound where it was found that she was . She stated that she was bleeding slightly on Thursday, but after her visit here it started bleeding heavily. The patient noted that she feels dizzy and does not feel right. Patient has a A4. PMHx of IBS. Patient changed her pads 5 times within the last hour. Dr. Titus Torres is her PASTRY DECORATOR in [place], [place]. - History of Current Complaint Chief Complaint: EDOBProblems Stated Complaint: HEAVY BLEEDING Time Seen by Provider: 06/26/18 16:06 Hx Obtained From: Patient Chief Complaint: Vaginal Bleeding Onset/Duration: Started Days Ago, Still Present, Worse Since Timing: Constant Severity: Moderate Current Severity: Moderate Pain Intensity: 7 Location of Pain: Other: - VAGINAL PAIN Character: None Aggravating Factors: Nothing Alleviating Factors: Nothing Associated Signs and Symptoms: Positive: Vaginal Bleeding or Discharge - Assessment Hx Now: - unk SAB: 6 IEA: 1 Hx Hysterectomy: No - Additional Pertinent History Maternal Blood Type and Rh: O Positive - Allergies/Home Medications Allergies/Adverse Reactions: Allergies Allergy/AdvReac Type Severity Reaction Status Date / Time bacitracin Allergy Blisters Verified 06/23/18 10:30 [From Neosporin ([id number])] neomycin Allergy Blisters Verified 06/23/18 10:30 [From Neosporin ([id number])] polymyxin B Allergy Blisters Verified 06/23/18 10:30 [From Neosporin ([id number])] PMH/Surg Hx/FS Hx/Imm Hx Endocrine/Hematology History: Denies: Hx Anticoagulant Therapy, Hx Diabetes, Hx Thyroid Disease Cardiovascular History: Denies: Hx Hypertension, Hx Pacemaker/ICD Respiratory History: Denies: Hx Asthma, Hx Chronic Obstructive Pulmonary Disease (COPD) History: Denies: Hx Renal Disease Musculoskeletal History: Reports: Other Musculoskeletal History - No Hx neck problems Sensory History: Denies: Hx Hearing Aid Neurological History: Denies: Hx Dementia, Hx Seizures Psychiatric History: Reports: Hx Panic Disorder - ATTACKS Denies: Hx Substance Abuse - Surgical History Surgery Procedure, Year, and Place: c section, surgical 2016 Infectious Disease History: No Infectious Disease History: Denies: Hx Hepatitis, Hx Human Immunodeficiency Virus (HIV), History Other Infectious Disease, Traveled Outside the US in Last 30 Days - Family History Known Family History: Positive: Hypertension, Diabetes Family History: NON CONTRIBUTORY - Social History Alcohol Use: Daily Alcohol Amount: 4 beers a day Hx Substance Use: No Substance Use Type: Reports: None Hx Tobacco Use: Yes Smoking Status (MU): Light Every Day Tobacco Smoker Amount Used/How Often: 10 cig. day Review of Systems Negative: Fever Positive: discharge - BLEEDING Neurological: Other - POSITIVE: DIZZINESS All Other Systems Reviewed And Are Negative: Yes Physical Exam - Summary Physical Exam Summary: Appearance: Ill appearing, moderate pain distress, heavy bleeding on blankets on stretcher and gown. Skin: cool, pale, mottled skin Head/face: normal Eyes: EOMI, CARLA ENT: mucous membranes moist Neck: supple, non-tender Respiratory: CTA, breath sounds present Cardiovascular: tachycardic, pulses symmetrical Abdomen: non-tender, soft Bowel Sounds: present Musculoskeletal: normal, strength/ROM intact Neuro: normal, sensory motor intact, A&Ox3 PELVIC EXAM: Completed with nurse, it was found a large amount of blood and clot in the vaginal vault. Suctioned out approximately 200 ccs of blood. Product of conception at the Cervix which was removed. - Physical Exam Triage Information Reviewed: Yes Vital Signs Reviewed: Yes Diagnostics - Vital Signs Vital Signs Temp Pulse Resp BP Pulse Ox 06/26/18 15:59 98.5 F 136 20 118/74 100 - Laboratory Result Diagrams: 06/26/18 17:31 06/26/18 16:17 Lab Statement: Any lab studies that have been ordered have been reviewed, and results considered in the medical decision making process. - Ultrasound No standard instances Ultrasound Interpretation Completed By: Radiologist Summary of Ultrasound Findings: TRANSVAGINAL ULTRASOUND: 1. Sonographic findings are consistent with retained products of conception. 2. The gestational sac and discrete identifiable products of conception from the previous pelvic ultrasound dated June 23, 2018 is not seen today. Please correlate to the trend of the beta hCG. ED PHYSICIAN REVIEWED THIS RADIOLOGY REPORT. Re-Evaluation - Re-Evaluation First Eval Re-Evaluation Time: 16:31 Change: Improved Comment: PATIENT FEELS MUCH BETTER AFTER REMOVAL OF PRODUCT OF CONCEPTION. Second Eval Re-Evaluation Time: 17:19 Change: Improved Comment: DR. REYES IS AT PATIENT'S BEDSIDE Course/Dx - Course Course Of Treatment: Nurse's notes reviewed. Patient presents in extremis with evidence of hemorrhagic shock and large volume pelvic bleeding in . I was able to suction out approximately 200 cc of blood and clot and pull a small portion of product of conception from the cervix. The cervix is closed. Patient had some improvement there was transient and then had vagal episode where she syncopized. She had a second and then third episodes of bleeding. Ultrasound was performed which showed vascularity and debris within the uterus. The PASTRY DECORATOR was asked to come to the bedside. Massive transfusion protocol was activated for the availability medications and blood. She was given Methergine, Cytotec, TXA in addition to IV fluids. Blood was held by the OB/ VP SOFTWARE. She was taken urgently to the operating suite for D&C. - Differential Diagnosis/HQI/PQRI: Incomplete , Missed , Spontaneous - Diagnoses Provider Diagnoses: Spontaneous miscarriage, Hemorrhagic shock - Provider Notifications Discussed Care Of Patient With: Jayda Reyes Time Discussed With Above Provider: 15:54 Instructed by Provider To: Other - RECOMMENDS 800 CC OF VAGINAL CYTOTEC. - Critical Care Time Critical Care Time: 75-104 min - 75 MINUTES. CCT is EXCLUSIVE of separately billable procedures. Discharge - Sign-Out/Discharge Documenting (check all that apply): Patient Departure - ADMIT, Sign-Out Patient - WAI Signing out patient TO: Jayda Reyes Receiving patient FROM: Shaun Gallardo Patient Received Moderate/Deep Sedation with Procedure: No - Discharge Plan Condition: Stable Disposition: ADMITTED TO [facility] - Billing Disposition and Condition Condition: STABLE Disposition: Admitted to [facility] - Attestation Statements Document Initiated by Scribe: Yes Documenting Scribe: Sloan Horne Provider For Whom Scribe is Documenting (Include Credential): Shaun Gallardo MD Scribe Attestation: I, Sloan Horne, scribed for Shaun Gallardo MD on 06/26/18 at 1935. Scribe Documentation Reviewed: Yes Provider Attestation: The documentation as recorded by the makenzieibSloan aquino accurately reflects the service I personally performed and the decisions made by me, Shaun Gallardo MD Status of Scribe Document: Viewed
[2018-06-26] MEDS ORDERED: Misoprostol TAB* 200 MCG VAGINAL ONE (16:38)
[2018-06-26 16:49] LABS: Activated Partial Thrombo Time 28.9 seconds (26.0-36.3); EGFR African American 131.8 (>60); EGFR Non-African American 108.9 (>60); INR 0.95 (0.77-1.02); Potassium 3.7 mmol/L (3.5-5.0)
[2018-06-26] MEDS ORDERED: Tranexamic Acid 1,000 MG/10 ML 1,000 MG in NS 0.9% 50 ML* 50 ML IV ONE (16:51)
[2018-06-26] MEDS ORDERED: Tranexamic Acid 1,000 MG/10 ML SDV IV ONE (16:52)
[2018-06-26 17:10] LABS: Fibrinogen 248.8 mg/dL (110.8-404.3)
[2018-06-26] MEDS ORDERED: Ondansetron INJ* 2 MG/ML VIAL IV ONE (17:19)
[2018-06-26] MEDS ORDERED: Ondansetron INJ* 2 MG/ML VIAL ONE (17:19)
[2018-06-26] MEDS ORDERED: Ketorolac INJ* 30 MG/ML 1 ML VIAL IV PUSH ONE (17:19)
[2018-06-26] MEDS ORDERED: ceFOXitin 2 GM IVPREMIX* 50 ML IVPB ONE (17:39)
[2018-06-26] MEDS ORDERED: Succinylcholine* 20 MG/ML 10 ML VIAL ONE (17:46)
[2018-06-26] MEDS ORDERED: Midazolam* 1 MG/ML 2 ML VIAL (2 MG) ONE (17:47)
[2018-06-26] MEDS ORDERED: Propofol* 10 MG/ML 20 ML BTL ONE (17:47)
[2018-06-26] MEDS ORDERED: Propofol* 500 MG/50 ML BTL ONE (17:47)
[2018-06-26] MEDS ORDERED: Lidocaine 2% PF * 5 ML VIAL ONE ×2 (17:47→18:30)
[2018-06-26] MEDS ORDERED: fentaNYL* 50 MCG/ML 2 ML VIAL (100 MCG VIAL) ONE (17:48)
[2018-06-26] MEDS ORDERED: EPHEDrine (Pressors)* 50 MG/ML VIAL ONE (17:58)
[2018-06-26] MEDS ORDERED: Phenylephrine INJ* 10 MG/ML 1 ML VIAL (10 MG) ONE ×2 (18:17→18:18)
[2018-06-26] MEDS ORDERED: ceFAZolin 1 GM VIAL(*) ONE (18:26)
[2018-06-26 18:51] LABS: ABS Basophils 0.1 10^3/ul (0-0.2); ABS Eosinophils 0.2 10^3/ul (0-0.6); ABS Lymphocytes 4.5 10^3/ul (1.0-4.8); ABS Monocytes 1.4 10^3/ul (0-0.8); ABS Neutrophils 8.2 10^3/ul (1.5-7.7); ABS Nucleated RBC 0 10^3/ul; Eosinophil % 1.2 %; Hematocrit 25 % (35-47); Hemoglobin 8.6 g/dl (12.0-16.0); Lymphocyte % 31.5 %; Mean Corpuscular HGB Conc 34 g/dl (31-36); Mean Corpuscular Hemoglobin 36 pg (27-31); Mean Corpuscular Volume 105 fL (80-97); Mean Platelet Volume 9.3 fL (7.4-10.4); Nucleated Red Blood Cells % 0.1; Platelet Count 190 10^3/ul (150-450); Red Blood Count 2.41 10^6/ul (4.00-5.40); Red Cell Distribution Width 13 % (10.5-15); White Blood Count 14.3 10^3/ul (3.5-10.8)
[2018-06-26] MEDS ORDERED: Ketorolac INJ* 30 MG/ML 1 ML VIAL IV PRN (19:11)
[2018-06-26] MEDS ORDERED: Ondansetron INJ* 2 MG/ML VIAL IV PRN (19:11)
[2018-06-26] MEDS ORDERED: Metoclopramide IV* 5 MG/ML 2 ML VIAL IV PRN (19:11)
[2018-06-26] MEDS ORDERED: Acetaminophen TAB* 325 MG PO PRN (19:11)
[2018-06-26] MEDS ORDERED: Naloxone* 0.4 MG/ML 1 ML VIAL IV PRN (19:11)
[2018-06-26] MEDS ORDERED: oxyCODONE TAB* 5 MG TAB PO PRN (19:11)
[2018-06-26] MEDS ORDERED: Ketorolac INJ* 30 MG/ML 1 ML VIAL ONE (19:14)
[2018-06-26] MEDS ORDERED: oxyCODONE TAB* 5 MG TAB ONE (19:19)
[2018-06-26 19:58] VITALS: BP 106/58
--- NOTE | 2018-06-26 21:07 | OP ---
OPERATIVE REPORT: DATE OF OPERATION: 06/26/18 DATE OF : 84 SURGEON: Jayda Reyes MD ANESTHESIOLOGIST: Dr. Sullivan. ANESTHESIA: General with paracervical block. PRE-OP DIAGNOSIS: Incomplete . POST-OP DIAGNOSIS: Incomplete . OPERATIVE PROCEDURE: Dilatation, evacuation and curettage. ESTIMATED BLOOD LOSS: Intraoperatively was minimal. URINE OUTPUT: less than 20 cc INTRAOPERATIVE FLUIDS: 1.6 L. FINDINGS: Revealed products of conception within the uterine cavity. COMPLICATIONS: None apparent. DISPOSITION: Stable to recovery room. DESCRIPTION OF PROCEDURE: The patient was placed in dorsal lithotomy position. The legs were placed in candy cane stirrups. The perineum and vagina were prepped and draped in a sterile standard fashion. [place] protocol was performed for correct procedure, patient and position. Sterile speculum was inserted. Paracervical block of 2% lidocaine 10 cc was given. Anterior lip of the cervix was grasped with a single-tooth tenaculum, already dilated to 8 mm. An 8 mm curved suction curette was placed for complete evacuation of the intrauterine contents. Single-tooth tenaculum removed. Minimal bleeding was noted. Sterile speculum was removed Self-cath was inserted for drainage of less than 20 cc clear yellow urine and then the legs were taken out of candy cane stirrups and placed in dorsal supine position. The patient was taken to recovery room in stable condition. [id number]/CPS #: [id number] MTDD
== END 2018-06-26 19:59 | disposition home or self-care (01) ==
LOC: ED 15:49 → OR 18:59
PROVIDERS: ATTEND Obstetrics & Gynecology
DX: O03.1 Delayed or excessive hemorrhage following incomplete spontaneous abortion (principal); R55 Syncope and collapse; Z72.0 Tobacco use; R10.2 Pelvic and perineal pain; N94.9 Unspecified condition associated with female genital organs and menstrual cycle
CPT/HCPCS: 36415; 76817; 80048; 84450; 84460; 84702; 85025; 85384; 85610; 85730; 86850; 86900; 86901; 86922; 99284; A9270-GY; J0330; J0690; J1885; J2210; J2250; J2405; J2704; J3010

== ENCOUNTER 2018-11-04 11:02 | Emergency (ER) | payer OTHER ==
--- NOTE | 2018-11-04 11:19 | ED ---
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 Associated sx: racing palpitations. She notes recent stress including a dental issue. She is tearful and trembling at bedside. She states this is the first time a panic attack has been this bad. She states "I think I'm going to " at bedside. She denies recent illness. Drinks ETOH daily, 3-5 beers, denies going through withdrawal. Pt denies any fever, chills, erythema of eyes, sore throat, CP, SOB, cough, abdominal pain, N/V, dysuria, hematuria, myalgia, edema, rash, or dizziness. PCP is Dr. Andersen. Patient had been on Wellbutrin previously but stopped because of the way it made her feel. - History Of Current Complaint Chief Complaint: EDPsychosocial Hx Obtained From: Patient Hx Last Menstrual Period: weeks Onset/Duration: Sudden Onset, Still Present Timing: Constant Severity Initially: Severe Severity Currently: Severe Character: Anxious Aggravating Factor(s): Recent Stress - Allergies/Home Medications Allergies/Adverse Reactions: Allergies Allergy/AdvReac Type Severity Reaction Status Date / Time bacitracin Allergy Blisters Verified 11/04/18 11:06 [From Neosporin ([id number])] neomycin Allergy Blisters Verified 11/04/18 11:06 [From Neosporin ([id number])] polymyxin B Allergy Blisters Verified 11/04/18 11:06 [From Neosporin ([id number])] PMH/Surg Hx/FS Hx/Imm Hx Previously Healthy: No Endocrine/Hematology History: Denies: Hx Anticoagulant Therapy, Hx Diabetes, Hx Thyroid Disease Cardiovascular History: Denies: Hx Hypertension, Hx Pacemaker/ICD Respiratory History: Denies: Hx Asthma, Hx Chronic Obstructive Pulmonary Disease (COPD) History: Denies: Hx Renal Disease Musculoskeletal History: Reports: Other Musculoskeletal History - No Hx neck problems Sensory History: Denies: Hx Hearing Aid Neurological History: Denies: Hx Dementia, Hx Seizures Psychiatric History: Reports: Hx Panic Disorder - ATTACKS Denies: Hx Substance Abuse - Surgical History Surgery Procedure, Year, and Place: c section, surgical 2016 Infectious Disease History: No Infectious Disease History: Denies: Hx Hepatitis, Hx Human Immunodeficiency Virus (HIV), History Other Infectious Disease, Traveled Outside the US in Last 30 Days - Family History Known Family History: Positive: Hypertension, Diabetes - Social History Occupation: Unemployed Lives: Alone Alcohol Use: Daily Alcohol Amount: 4 beers a day Hx Substance Use: No Substance Use Type: Reports: None Hx Tobacco Use: Yes Smoking Status (MU): Light Every Day Tobacco Smoker Amount Used/How Often: 10 cig. day Review of Systems Positive: Other - pos:tremulous. Negative: Fever, Chills Negative: Erythema Negative: Sore Throat Positive: Palpitations. Negative: Chest Pain Negative: Shortness Of Breath, Cough Negative: Abdominal Pain, Vomiting, Nausea Negative: dysuria, hematuria Negative: Myalgia, Edema Negative: Rash Neurological: Other - neg: dizziness Psychological: Other - pos: tearful Positive: Anxious All Other Systems Reviewed And Are Negative: Yes Physical Exam - Summary Physical Exam Summary: Constitutional: Well-developed, Well-nourished, Alert. (-) Distressed Skin: Warm, Dry HENT: Normocephalic; Atraumatic Eyes: Conjunctiva normal Neck: Musculoskeletal ROM normal neck. (-) JVD, (-) Stridor, (-) Tracheal deviation Cardio: Rhythm regular, rate normal, Heart sounds normal; Intact distal pulses; The pedal pulses are 2+ and symmetric. Radial pulses are 2+ and symmetric. (-) Murmur Pulmonary/Chest wall: Effort normal. (-) Respiratory distress, (-) Wheezes, (-) Rales Abd: Soft, (-) epigastric tenderness, (-) Distension, (-) Guarding, (-) Rebound Musculoskeletal: (-) Edema Lymph: (-) Cervical adenopathy Neuro: Alert, Oriented x3 Psych: Anxious, tremulous and tearful at bedside. Triage Information Reviewed: Yes Vital Signs On Initial Exam: Initial Vitals Temp Pulse Resp BP Pulse Ox 97.7 F 104 20 152/100 96 11/04/18 11:04 11/04/18 11:04 11/04/18 11:04 11/04/18 11:04 11/04/18 11:04 Vital Signs Reviewed: Yes Diagnostics - Vital Signs Vital Signs Temp Pulse Resp BP Pulse Ox 11/04/18 11:04 97.7 F 104 20 152/100 96 - Laboratory Lab Statement: Any lab studies that have been ordered have been reviewed, and results considered in the medical decision making process. Re-Evaluation - Re-Evaluation 1 Re-Evaluation Time: 12:27 Change: Improved Comment: Patient is feeling much improved after Xanax 0.5mg. Course/Dx - Course Course Of Treatment: Patient is a 38 y/o F presenting with sudden-onset panic attack. She is tearful, trembling at bedside and having racing palpitations. States "I think I'm going to ." Patient had been on Wellbutrin but stopped because of the way it made her feel. Patient is feeling much improved at Xanax 0.5mg. Will discharge home with Xanax and to f/u with PCP in 2-3 days. - Differential Dx/Clinical Impression Provider Diagnosis: Panic attack Discharge - Sign-Out/Discharge Documenting (check all that apply): Patient Departure - D/C Patient Received Moderate/Deep Sedation with Procedure: No - Discharge Plan Condition: Stable Disposition: HOME Prescriptions: ALPRAZolam TAB* [Xanax TAB*] 0.5 mg PO DAILY PRN #5 tab MDD 1 PRN Reason: Agitation/Anxiety Patient Education Materials: Panic Attack (ED), Alprazolam (By mouth) Referrals: Paulo Andersen MD [Primary Care Provider] - 2 Days Additional Instructions: Return to the emergency department for changing or worsening symptoms. Follow up with your primary care provider in 2-3 days. - Attestation Statements Document Initiated by Scribe: Yes Documenting Scribe: Awa Tesfaye Provider For Whom Scribe is Documenting (Include Credential): Dr. Dhaval Garcia MD Scribe Attestation: I, Awa Tesfaye, scribed for Dr. Dhaval Garcia MD on 11/04/18 at 1230. Status of Scribe Document: Ready
[2018-11-04] MEDS ORDERED: ALPRAZolam TAB* 0.5 MG PO ONE (11:45)
[2018-11-04 12:44] VITALS: BP 104/70
== END 2018-11-04 12:45 | disposition home or self-care (01) ==
LOC: ED 11:02
DX: F41.0 Panic disorder [episodic paroxysmal anxiety] (principal); R00.2 Palpitations; Z88.3 Allergy status to other anti-infective agents; F17.210 Nicotine dependence, cigarettes, uncomplicated
CPT/HCPCS: 99282; A9270-GY

== ENCOUNTER 2019-06-06 10:56 | Emergency (ER) | payer OTHER ==
[2019-06-06 11:34] VITALS: BP 126/91
--- NOTE | 2019-06-06 11:43 | UC ---
Throat Pain/Nasal [place] HPI - HPI Summary HPI Summary: 39 yo female presents with sinus symptoms. She tells me that for the last 5-6 days she has had sinus pain/pressure/congestion with post nasal drip. Today has a headache due to sinus pressure. She has not been taking anything OTC for her symptoms. Denies fever, chills, SOB, body aches, fatigue. - History of Current Complaint Chief Complaint: UCGeneralIllness Stated Complaint: HEADACHE SINUS ISSUE SORE THROAT Time Seen by Provider: 06/06/19 11:43 Hx Obtained From: Patient Hx Last Menstrual Period: weeks Onset/Duration: Gradual Onset Severity: Moderate Pain Intensity: 7 Pain Scale Used: 0-10 Numeric - Allergies/Home Medications Allergies/Adverse Reactions: Allergies Allergy/AdvReac Type Severity Reaction Status Date / Time bacitracin Allergy Blisters Verified 06/06/19 11:30 [From Neosporin ([id number])] neomycin Allergy Blisters Verified 06/06/19 11:30 [From Neosporin ([id number])] polymyxin B Allergy Blisters Verified 06/06/19 11:30 [From Neosporin ([id number])] PMH/Surg Hx/FS Hx/Imm Hx Psychological History: Anxiety Other History Of: Negative For: Anticoagulant Therapy - Surgical History Surgical History: Yes Surgery Procedure, Year, and Place: c section, surgical 2015 - Family History Known Family History: Positive: Hypertension, Diabetes - Social History Lives: With Family Alcohol Use: Daily Alcohol Amount: 4 beers a day Substance Use Type: None Smoking Status (MU): Light Every Day Tobacco Smoker Amount Used/How Often: 10 cig. day Household Exposure Type: Cigarettes - Immunization History Most Recent Influenza Vaccination: none Review of Systems All Other Systems Reviewed And Are Negative: No Constitutional: Positive: Negative Skin: Positive: Negative Eyes: Positive: Negative ENT: Positive: Nasal Discharge, Sinus Congestion, Sinus Pain/Tenderness Respiratory: Positive: Negative Cardiovascular: Positive: Negative Gastrointestinal: Positive: Negative Neurological: Positive: Negative Psychological: Positive: Negative Physical Exam - Summary Physical Exam Summary: GENERAL: NAD. WDWN. No pain distress. SKIN: No rashes, sores, lesions, or open wounds. HEENT: Head: AT/NC Eyes: EOM intact. Conjunctiva clear without inflammation or discharge. Ears: Hearing grossly normal. TMs intact, no bulging, erythema, or edema. Nose: Nasal mucosa pink and moist. No rhinorrhea. TTP maxillary and frontal sinus. Throat: Posterior oropharynx without exudates, erythema, or tonsillar enlargement. Uvula midline. NECK: Supple. Nontender. No lymphadenopathy. CHEST: CTAB. No r/r/w. No accessory muscle use. Breathing comfortably and in no distress. CV: RRR. Pulses intact. Cap refill <2seconds NEURO: Alert. PSYCH: Age appropriate behavior. Triage Information Reviewed: Yes Vital Signs: Initial Vital Signs Temp 98.9 F 06/06/19 11:31 Pulse 71 06/06/19 11:31 Resp 16 06/06/19 11:31 BP 126/91 06/06/19 11:31 Pulse Ox 99 06/06/19 11:31 Vital Signs Reviewed: Yes Throat Pain/Nasal Course/Dx - Course Course Of Treatment: Discussed viral vs bacterial causes of sinus congestion with pt and she prefers to be on anbx at this time. - Differential Dx/Diagnosis Provider Diagnosis: Sinusitis Discharge ED - Sign-Out/Discharge Documenting (check all that apply): Patient Departure All imaging exams completed and their final reports reviewed: No Studies - Discharge Plan Condition: Stable Disposition: HOME Prescriptions: Azithromycin TAB* [Zithromax TAB (Z-BETHANY) 250 mg #6 tabs] 2 tab PO .TODAY, THEN 1 DAILY #1 bethany Patient Education Materials: Rhinosinusitis (ED) Referrals: No Primary Care Phys,NOPCP [Primary Care Provider] - Additional Instructions: If you develop a fever, shortness of breath, chest pain, new or worsening symptoms - please call your PCP or go to the ED immediately. - Billing Disposition and Condition Condition: STABLE Disposition: Home
== END 2019-06-06 12:00 | disposition home or self-care (01) ==
LOC: UCEAST 10:56
DX: J32.9 Chronic sinusitis, unspecified (principal); F17.210 Nicotine dependence, cigarettes, uncomplicated; Z88.1 Allergy status to other antibiotic agents
CPT/HCPCS: 99211; G0463